=== PATIENT | male | born 2000 | race Two or more races ===

== ENCOUNTER 2023-01-30 02:40 | Emergency (ER) | payer OTHER ==
[~2023-01-30] VITALS: Ht 167.6 cm; Wt 106.8 kg
[2023-01-30 02:54] VITALS: BP 134/83
== END 2023-01-30 06:09 | disposition left against medical advice (07) ==
LOC: ER 02:40
DX: M25.512 Pain in left shoulder (principal); M54.2 Cervicalgia; Z53.21 Procedure and treatment not carried out due to patient leaving prior to being seen by health care provider